=== PATIENT | male | born 1955 | race Caucasian/White ===

== ENCOUNTER 2022-09-24 06:29 | Day surgery (SDC) | payer BC, MEDICAID ==
[~2022-09-24] VITALS: Ht 165.1 cm; Wt 93.0 kg
[2022-09-24] MEDS ORDERED: fentaNYL CITRATE/PF 100 MCG/2 ML AMP ONE (06:34)
[2022-09-24] MEDS ORDERED: MIDAZOLAM HCL 5 MG/5 ML VIAL ONE (06:34)
[2022-09-25 10:50] VITALS: BP_SYST 152
== END 2022-09-24 10:06 | disposition home or self-care (01) ==
LOC: SDS 06:29 → SMU 06:30 → SDS 10:06
PROVIDERS: ATTEND Internal Medicine
DX: Z12.11 Encounter for screening for malignant neoplasm of colon (principal); D12.5 Benign neoplasm of sigmoid colon; Z86.010 Personal history of colon polyps; I10 Essential (primary) hypertension; E11.9 Type 2 diabetes mellitus without complications; E78.5 Hyperlipidemia, unspecified; Z79.899 Other long term (current) drug therapy
CPT/HCPCS: 45385; 82962; 88305; 99152; G0378; J2250; J3010